=== PATIENT | female | born 1985 | race Caucasian/White ===

== ENCOUNTER 2017-11-16 16:03 | Inpatient (IN) | payer OTHER, BC ==
[~2017-11-16] VITALS: Ht 165.1 cm; Wt 135.4 kg
[~2017-11-16 16:03] MED LIST: ALBU8.5H8 INH; DESO1TAB72 PO; HYDR25TA6 PO; LEVO5TAB29 PO; MINO50TA2 PO; RIZA10TA20 PO
[2017-11-24] MEDS ORDERED: FENTANYL/BUPIV./NS/PF 250 ML EPIDCONT ONE (05:56)
[2017-11-24] MEDS ORDERED: OXYTOCIN 30U/ 0.9% NaCL 500ML 500 ML IV PRN (20:42)
[2017-11-24] MEDS ORDERED: OXYTOCIN 30U/ 0.9% NaCL 500ML 500 ML IV ONE (20:42)
[2017-11-24] MEDS ORDERED: D5%-LACTATED RINGERS 1,000 ML IV SCH (20:42)
[2017-11-24] MEDS ORDERED: MISOPROSTOL 25 MCG TABLET ONE (20:54)
[2017-11-24] MEDS ORDERED: FENTANYL PF 100 MCG/2ML IVPush PRN (21:00)
[2017-11-24] MEDS ORDERED: PENICILLIN GK 5,000,000 UNITS in SODIUM CHLORIDE 0.9% 100 ML IVPB ONE (21:00)
[2017-11-24] MEDS ORDERED: MISOPROSTOL 25 MCG TABLET PO PRN (21:00)
[2017-11-24] MEDS ORDERED: ONDANSETRON 2MG/ML, 2ML IVPush PRN (21:00)
[2017-11-24] MEDS ORDERED: FENTANYL PF 100 MCG/2ML IV PRN (21:00)
[2017-11-24] MEDS ORDERED: CALCIUM CARBONATE 500 MG TAB.CHEW PO PRN (21:00)
[2017-11-24 21:26] LABS: BASOPHILS # (AUTO) 0.23 x10^3/uL (0-0.1); BASOPHILS % (AUTO) 2 % (0-1); EOSINOPHILS # (AUTO) 0.06 x10^3/uL (0-0.4); EOSINOPHILS % (AUTO) 1 % (1-7); LYMPHOCYTES % (AUTO) 21 % (22-44); MD NO; MEAN CORPUSCULAR HEMOGLOBIN 32.7 pg (27.0-34.8); MEAN CORPUSCULAR HGB CONC 33.3 g/dL (32.4-35.8); MEAN CORPUSCULAR VOLUME 98.4 fL (80-100); MEAN PLATELET VOLUME 6.6 fL (7.4-10.4); MONOCYTES # (AUTO) 0.63 x10^3/uL (0.2-0.8); MONOCYTES % (AUTO) 4 % (2-9); NEUTROPHILS # (AUTO) 10.33 x10^3/uL (1.8-6.8); NEUTROPHILS % (AUTO) 73 % (42-75); PLATELET COUNT 301 x10^3/uL (130-400); RED BLOOD COUNT 3.77 x10^6/uL (3.82-5.3)
[2017-11-24] MEDS: LACTATED RINGERS 1,000 ML IV SCH (22:00)
[2017-11-24 22:50] LABS: MICROSCOPIC INDICATED
[2017-11-24 23:14] VITALS: BP 112/75
[2017-11-25] MEDS ORDERED: NEWBORN KIT ONE (01:48)
[2017-11-25] MEDS: PENICILLIN GK 2,500,000 UNITS in DEXTROSE 5% 100 ML IVPB SCH ×4 (02:10→14:49)
[2017-11-25] MEDS: LACTATED RINGERS 1,000 ML IV SCH ×8 (04:50→23:08)
[2017-11-25] MEDS ORDERED: FENTANYL PF 200 MCG, BUPIVACAINE/PF 0.5%, 30ML 20 ML in SODIUM CHLORIDE 0.9% 76 ML EPIDCONT SCH (05:02)
[2017-11-25] MEDS ORDERED: OXYTOCIN 30U/ 0.9% NaCL 500ML 500 ML ONE ×2 (05:08→19:14)
[2017-11-25] MEDS ORDERED: FENTANYL/BUPIV./NS/PF 250 ML EPIDCONT SCH ×2 (05:12→06:28)
[2017-11-25] MEDS ORDERED: BUPIVACAINE 0.25% ONE (05:56)
[2017-11-25] MEDS ORDERED: LIDOCAINE/PF 1.5%-EPI 1:200K, 30ML ONE (05:56)
[2017-11-25] MEDS ORDERED: LIDOCAINE/PF 1%, 30ML ONE (05:56)
[2017-11-25] MEDS ORDERED: EPHEDRINE 50 MG/ML, 1ML ONE (06:23)
[2017-11-25] MEDS ORDERED: ONDANSETRON 2MG/ML, 2ML IVPush PRN (06:30)
[2017-11-25] MEDS ORDERED: EPHEDRINE 50 MG/ML, 1ML IVPush PRN (06:30)
[2017-11-25] MEDS ORDERED: NALOXONE 0.4 MG/ML, 1ML IVPush PRN (06:30)
[2017-11-25] MEDS ORDERED: DIPHENHYDRAMINE 50 MG/ML, 1ML IVPush PRN (06:30)
[2017-11-25] MEDS ORDERED: LACTATED RINGERS 1,000 ML IVBOLUS PRN (06:30)
[2017-11-25] MEDS ORDERED: LACTATED RINGERS 500 ML IVBOLUS PRN (07:30)
[2017-11-25 08:59] LABS: BASOPHILS # (AUTO) 0.28 x10^3/uL (0-0.1); BASOPHILS % (AUTO) 2 % (0-1); EOSINOPHILS % (AUTO) 0 % (1-7); LYMPHOCYTES # (AUTO) 1.72 x10^3/uL (1-3.4); LYMPHOCYTES % (AUTO) 13 % (22-44); MD NO; MEAN CORPUSCULAR HEMOGLOBIN 32.8 pg (27.0-34.8); MEAN CORPUSCULAR HGB CONC 33.3 g/dL (32.4-35.8); MEAN CORPUSCULAR VOLUME 98.3 fL (80-100); MEAN PLATELET VOLUME 6.4 fL (7.4-10.4); MONOCYTES # (AUTO) 0.41 x10^3/uL (0.2-0.8); MONOCYTES % (AUTO) 3 % (2-9); NEUTROPHILS % (AUTO) 82 % (42-75); PLATELET COUNT 267 x10^3/uL (130-400); RED BLOOD COUNT 3.34 x10^6/uL (3.82-5.3); RED CELL DISTRIBUTION WIDTH 16.1 % (9.6-15.2)
[2017-11-25 09:10] LABS: INTERNATIONAL NORMALIZED RATIO 0.96 (0.93-1.1); PROTHROMBIN TIME 9.9 Seconds (9.6-11.5)
[2017-11-25 09:12] LABS: ALANINE AMINOTRANSFERASE 15 U/L (12-78); ALBUMIN 2.5 g/dL (3.4-5.0); ANION GAP 9 mmol/L (5-15); CALCIUM 7.9 mg/dL (8.5-10.1); CHLORIDE 108 mmol/L (98-107)
[2017-11-25 09:14] LABS: ALKALINE PHOSPHATASE 138 U/L (45-117); BILIRUBIN,TOTAL 0.7 mg/dL (0.2-1.0); CREATININE 0.61 mg/dL (0.55-1.02); TOTAL PROTEIN 6.4 g/dL (6.4-8.2)
[2017-11-25] MEDS ORDERED: TERBUTALINE 1 MG/ML, 1ML ONE (13:32)
[2017-11-25] MEDS ORDERED: LACTATED RINGERS 1,000 ML INTUTE SCH (14:00)
[2017-11-25] MEDS ORDERED: TERBUTALINE 1 MG/ML, 1ML IVPush PRN (14:00)
[2017-11-25] MEDS ORDERED: LACTATED RINGERS 1,000 ML INTUTE PRN (14:00)
[2017-11-25] MEDS ORDERED: MISOPROSTOL 200 MCG TABLET ONE (14:07)
[2017-11-25] MEDS ORDERED: KETOROLAC 30 MG/1 ML ONE (19:13)
[2017-11-25] MEDS: KETOROLAC 30 MG/1 ML IVPush SCH (19:21)
[2017-11-25] MEDS: OXYTOCIN 30U/ 0.9% NaCL 500ML 500 ML IV SCH (19:21)
[2017-11-25] MEDS ORDERED: ONDANSETRON 2MG/ML, 2ML IV PRN (19:30)
[2017-11-25] MEDS ORDERED: MISOPROSTOL 200 MCG TABLET PR PRN (19:30)
[2017-11-25] MEDS ORDERED: METHYLERGONOVINE 0.2 MG/ML IM PRN (19:30)
[2017-11-25] MEDS ORDERED: RHOGAM FROM BLOOD BANK 1 NOTE EA IM/IV ONE (19:30)
[2017-11-25] MEDS ORDERED: CALCIUM CARBONATE 500 MG TAB.CHEW PO PRN (19:30)
[2017-11-25] MEDS ORDERED: MEASLES,MUMPS&RUBELLA VACC/PF 0.5 ML SQ-VACC PRN (19:30)
[2017-11-25] MEDS ORDERED: DIPH,PERTUSS(ACELL),TET VAC/PF NC IM-VACC PRN (19:30)
[2017-11-25] MEDS ORDERED: CARBOPROST TROMETHAMINE 250 MCG/ML, 1ML IM PRN (19:30)
[2017-11-25] MEDS ORDERED: METOCLOPRAMIDE 5 MG/ML, 2ML IV PRN (19:30)
[2017-11-25] MEDS ORDERED: MAGNESIUM HYDROXIDE 8%, 30ML UDC PO PRN (19:30)
[2017-11-25] MEDS ORDERED: BISACODYL 10 MG SUPP PR PRN (19:30)
[2017-11-25] MEDS ORDERED: GLYCERIN ADULT SUPP PR PRN (19:30)
[2017-11-25] MEDS ORDERED: OXYcodone/APAP 5/325MG TABLET PO PRN ×2 (19:30)
[2017-11-25] MEDS ORDERED: OXYTOCIN 10 UNITS/ML, 1ML IM PRN (19:30)
[2017-11-25 19:57] VITALS: BP 106/59
[2017-11-25 21:10] VITALS: BP 92/62
[2017-11-25 23:55] VITALS: BP 103/67
[2017-11-26] MEDS: KETOROLAC 30 MG/1 ML IVPush SCH ×3 (01:42→12:20)
[2017-11-26 05:09] VITALS: BP 99/65
[2017-11-26] MEDS: OXYTOCIN 30U/ 0.9% NaCL 500ML 500 ML IV SCH (05:13)
[2017-11-26 05:55] LABS: BASOPHILS # (AUTO) 0.04 x10^3/uL (0-0.1); BASOPHILS % (AUTO) 0 % (0-1); EOSINOPHILS # (AUTO) 0.04 x10^3/uL (0-0.4); EOSINOPHILS % (AUTO) 0 % (1-7); LYMPHOCYTES # (AUTO) 2.44 x10^3/uL (1-3.4); LYMPHOCYTES % (AUTO) 16 % (22-44); MD NO; MEAN CORPUSCULAR HEMOGLOBIN 33.4 pg (27.0-34.8); MEAN CORPUSCULAR VOLUME 98.3 fL (80-100); MEAN PLATELET VOLUME 6.8 fL (7.4-10.4); MONOCYTES # (AUTO) 0.73 x10^3/uL (0.2-0.8); MONOCYTES % (AUTO) 5 % (2-9); NEUTROPHILS # (AUTO) 11.97 x10^3/uL (1.8-6.8); NEUTROPHILS % (AUTO) 79 % (42-75); PLATELET COUNT 244 x10^3/uL (130-400); RED BLOOD COUNT 2.81 x10^6/uL (3.82-5.3); RED CELL DISTRIBUTION WIDTH 16.3 % (9.6-15.2)
[2017-11-26] MEDS: LACTATED RINGERS 1,000 ML IV SCH ×2 (06:28→07:08)
[2017-11-26 07:31] VITALS: BP 95/62
[2017-11-26] MEDS: DOCUSATE 100 MG CAPSULE PO PRN (08:25)
[2017-11-26] MEDS: PRENATAL VIT/IRON/FA 1 EACH TABLET PO SCH (09:00)
[2017-11-26 12:01] VITALS: BP 114/69
[2017-11-26] MEDS: ACETAMINOPHEN 325 MG TABLET PO PRN ×3 (14:11→22:50)
[2017-11-26 16:15] VITALS: BP 106/71
[2017-11-26 19:24] VITALS: BP 117/78
[2017-11-27] MEDS ORDERED: KETOROLAC 10MG TABLET PO PRN (02:30)
[2017-11-27] MEDS: ACETAMINOPHEN 325 MG TABLET PO PRN ×3 (03:06→10:57)
[2017-11-27 07:11] VITALS: BP 100/65
[2017-11-27] MEDS: DOCUSATE 100 MG CAPSULE PO PRN (07:12)
[2017-11-27] MEDS: PRENATAL VIT/IRON/FA 1 EACH TABLET PO SCH (09:00)
== END 2017-11-27 17:16 | disposition home or self-care (01) | DRG 807 ==
LOC: LDIP 11-24 20:01 → 2NW 11-25 20:43
PROVIDERS: ADMIT Obstetrics & Gynecology; ATTEND Obstetrics & Gynecology
PROC: 10E0XZZ Delivery of Products of Conception, External Approach (ICD-10-PCS; principal; 2017-11-25)
PROC: 0KQM0ZZ Repair Perineum Muscle, Open Approach (ICD-10-PCS; 2017-11-25)
PROC: 3E0R3BZ Introduction of Anesthetic Agent into Spinal Canal, Percutaneous Approach (ICD-10-PCS; 2017-11-25)
PROC: 00HU33Z Insertion of Infusion Device into Spinal Canal, Percutaneous Approach (ICD-10-PCS; 2017-11-25)
DX: O48.0 Post-term pregnancy (principal); Z37.0 Single live birth; J45.20 Mild intermittent asthma, uncomplicated; O70.1 Second degree perineal laceration during delivery; O76 Abnormality in fetal heart rate and rhythm complicating labor and delivery; O99.52 Diseases of the respiratory system complicating childbirth; O99.824 Streptococcus B carrier state complicating childbirth; Z3A.41 41 weeks gestation of pregnancy; Z80.41 Family history of malignant neoplasm of ovary; Z82.49 Family history of ischemic heart disease and other diseases of the circulatory system; Z83.3 Family history of diabetes mellitus; Z90.49 Acquired absence of other specified parts of digestive tract
CPT/HCPCS: 36415; J7121; 80053; 81001; 82803; 85025; 85610; 85730; 86850; 86900; G0378; J1885; J2540; J3490; J2590; J3010; J3105; J7120